=== PATIENT | female | born 1965 | race Caucasian/White ===

== ENCOUNTER 2019-10-03 00:09 | Observation (INO) ==
[2019-10-03] MEDS ORDERED: NS 1000 ML 1,000 ML ONE ×2 (00:19→01:22)
[2019-10-03] MEDS ORDERED: NS 1000 ML 1,000 ML IV ONE (00:23)
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
[2019-10-03 00:56] LABS: BASOPHILS % (AUTO) 0.8 % (0.2-1.0); EOSINOPHILS % (AUTO) 0.1 % (0.9-2.9); HEMOGLOBIN 13.8 g/dL (12.0-16.0); LYMPHOCYTES % (AUTO) 34.3 % (21.0-51.0); MEAN CORPUSCULAR HEMOGLOBIN 32.6 pg (27.0-34.0); MEAN CORPUSCULAR HGB CONC 34.5 g/dL (33.0-35.0); MEAN CORPUSCULAR VOLUME 94.4 fL (80.0-100.0); MEAN PLATELET VOLUME 7.3 fL (7.4-11.0); MONOCYTES # (AUTO) 0.3 x10^3/uL (0.3-0.8); MONOCYTES % (AUTO) 5.2 % (0.0-13.0); NEUTROPHILS # (AUTO) 3.4 x10^3/uL (2.2-4.8); NEUTROPHILS % (AUTO) 59.6 % (42.0-75.0); PLATELET COUNT 213 X10^3/uL (150.0-450.0); RED BLOOD COUNT 4.23 X10^6/uL (3.5-5.4); WHITE BLOOD COUNT 5.7 X10^3/uL (3.6-10.0)
[2019-10-03 01:00] LABS: BLOOD UREA NITROGEN 6 mg/dL (7-18); CALCIUM 8.3 mg/dL (8.5-10.1); CARBON DIOXIDE 31.6 mmol/L (21-32); CHLORIDE 102 mmol/L (98-107); CREATININE 1.09 mg/dL (0.55-1.02); SODIUM 142 mmol/L (136-145); eGFR NON BLACK RACES 56 (>60)
[2019-10-03 01:04] LABS: ALANINE AMINOTRANSFERASE 34 Units/L (12-78); ALBUMIN 3.8 g/dL (3.4-5.0); ALKALINE PHOSPHATASE 55 Units/L (46-116); ASPARTATE AMINO TRANSFERASE 34 Units/L (15-37); SERUM PREGNANCY TEST, QUAL NEGATIVE <10 mIU/mL; TOTAL PROTEIN 7.1 g/dL (6.4-8.2)
[2019-10-03] MEDS ORDERED: K-DUR TAB 20 MEQ PO STA (01:06)
[2019-10-03 01:07] LABS: SALICYLATE 18.3 mg/dL (2.8-20)
[2019-10-03] MEDS ORDERED: K-DUR TAB 20 MEQ PO ONE (01:16)
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
[2019-10-03] MEDS ORDERED: NS 1000 ML 1,000 ML IV SCH (02:00)
[2019-10-03] MEDS ORDERED: ANCEF VIAL 1 GRAM IVP ONE (03:12)
--- NOTE | 2019-10-03 03:33 | RAD ---
HISTORYPreopSTUDYCHEST, 1 VIEWCOMPARISONNoneFINDINGSFindings within the chest or accentuated by low lung volumes and body habitus. The cardiac silhouette and pulmonary vasculature are felt likely within normal limits. No focal lung consolidation is identified. There is no pleural effusion or pneumothorax.IMPRESSIONLow lung volumes without acute cardiopulmonary process identified.Electronically signed by: Pascual Correia (Oct 03, 2019 03:31:44)
[2019-10-03] MEDS ORDERED: ANCEF VIAL 1 GRAM ONE (03:34)
[2019-10-03] MEDS ORDERED: NS + KCL 20 MEQ/L 1,000 ML IV ONE (03:38)
[2019-10-03] MEDS: NS + KCL 20 MEQ/L 1,000 ML IV SCH ×4 (03:39→16:20)
[2019-10-03 03:43] LABS: BILIRUBIN,URINE NEGATIVE (NEGATIVE); BLOOD/HEMOGLOBIN,URINE NEGATIVE (NEGATIVE); GLUCOSE, URINE NEGATIVE (NEGATIVE); KETONES,URINE NEGATIVE (NEGATIVE); LEUKOCYTE ESTERASE ,URINE NEGATIVE (NEGATIVE); NITRITES,URINE NEGATIVE (NEGATIVE); PROTEIN,URINE NEGATIVE (NEGATIVE); UROBILINOGEN,URINE NORMAL (NORMAL)
[2019-10-03 03:53] LABS: APPEARANCE,URINE CLEAR (CLEAR); COLOR,URINE YELLOW (YELLOW)
[2019-10-03] MEDS ORDERED: NORCO 7.5/325 MG TAB PO PRN (04:14)
[2019-10-03] MEDS ORDERED: NORCO 7.5/325 MG TAB ONE ×2 (04:21→08:35)
[2019-10-03] MEDS ORDERED: POTASSIUM CHL 40 MEQ/NS 0.45% 500 ML IV PRN (04:35)
[2019-10-03] MEDS ORDERED: KLOR-CON PO PRN (04:35)
[2019-10-03] MEDS ORDERED: K-DUR TAB 20 MEQ PO PRN (04:35)
[2019-10-03] MEDS ORDERED: K-RIDER 10 MEQ/NS 100 ML 10 MEQ/100 ML BAG IV PRN (04:35)
[2019-10-03] MEDS ORDERED: POTASSIUM CHL 60 MEQ/NS 0.45% 500 ML IV PRN (04:35)
[2019-10-03] MEDS ORDERED: POTASSIUM CHLORIDE LIQ 20 MEQ UDC PO PRN (04:35)
[2019-10-03] MEDS ORDERED: MICRO K EXTEN CAP 10 MEQ PO PRN (04:35)
[2019-10-03] MEDS ORDERED: MAGNESIUM SULFATE 1 GRAM/100 mL PREMIX 1 G/100 ML BAG IV ONE (04:47)
[2019-10-03] MEDS: MAGNESIUM SULFATE 1 GRAM/100 mL PREMIX 1 GM/100 ML BAG IV PRN ×2 (05:40→07:43)
[2019-10-03 06:04] LABS: BASOPHILS % (AUTO) 0.1 % (0.2-1.0); EOSINOPHILS % (AUTO) 0.1 % (0.9-2.9); HEMATOCRIT 39.1 % (36.0-47.0); HEMOGLOBIN 13.6 g/dL (12.0-16.0); LYMPHOCYTES # (AUTO) 1.6 X10^3/uL (1.3-2.9); LYMPHOCYTES % (AUTO) 21.4 % (21.0-51.0); MEAN CORPUSCULAR HEMOGLOBIN 32.8 pg (27.0-34.0); MEAN CORPUSCULAR HGB CONC 34.7 g/dL (33.0-35.0); MEAN CORPUSCULAR VOLUME 94.6 fL (80.0-100.0); MEAN PLATELET VOLUME 7.4 fL (7.4-11.0); MONOCYTES # (AUTO) 0.4 x10^3/uL (0.3-0.8); MONOCYTES % (AUTO) 4.6 % (0.0-13.0); NEUTROPHILS # (AUTO) 5.7 x10^3/uL (2.2-4.8); NEUTROPHILS % (AUTO) 73.8 % (42.0-75.0); PLATELET COUNT 234 X10^3/uL (150.0-450.0); RED BLOOD COUNT 4.14 X10^6/uL (3.5-5.4); RED CELL DISTRIBUTION WIDTH 14.2 % (11.6-16.5); WHITE BLOOD COUNT 7.7 X10^3/uL (3.6-10.0)
[2019-10-03 06:15] LABS: ALANINE AMINOTRANSFERASE 35 Units/L (12-78); ALBUMIN 3.6 g/dL (3.4-5.0); ALKALINE PHOSPHATASE 53 Units/L (46-116); ASPARTATE AMINO TRANSFERASE 36 Units/L (15-37); BLOOD UREA NITROGEN 5 mg/dL (7-18); CALCIUM 8.1 mg/dL (8.5-10.1); CARBON DIOXIDE 29.8 mmol/L (21-32); CHLORIDE 106 mmol/L (98-107); CREATININE 1.04 mg/dL (0.55-1.02); SODIUM 145 mmol/L (136-145); TOTAL PROTEIN 6.8 g/dL (6.4-8.2); eGFR NON BLACK RACES 59 (>60)
[2019-10-03 06:17] VITALS: BMI 38.6
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
[2019-10-03] MEDS: NORCO 7.5/325 MG TAB PO PRN ×2 (08:38→15:50)
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
[2019-10-03] MEDS ORDERED: LR 1000 ML IV 1,000 ML IV ONE (10:29)
[2019-10-03] MEDS ORDERED: ANCEF 1 GRAM IV PREMIX* 1 G/50 ML BAG IV ONE (10:29)
[2019-10-03] MEDS ORDERED: FENTANYL INJ 100 mcg ONE (10:32)
[2019-10-03] MEDS ORDERED: XYLOCAINE 1 % (PLAIN) ONE (10:56)
[2019-10-03] MEDS ORDERED: BACITRACIN VIAL ONE (11:00)
[2019-10-03] MEDS ORDERED: BACTROBAN TOPICAL OINT ONE (11:02)
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
[2019-10-03] MEDS ORDERED: VERSED ONE (14:04)
[2019-10-03] MEDS ORDERED: DIPRIVAN VIAL ONE (14:04)
[2019-10-03] MEDS ORDERED: AFLURIA II4 or FLUARIX II4 IM ONE (14:23)
[2019-10-03] MEDS: AFLURIA II4 or FLUARIX II4 IM ONE (14:26)
[2019-10-03] MEDS ORDERED: KLONOPIN TAB 0.5 MG PO PRN (17:38)
[2019-10-03] MEDS ORDERED: XANAX PO PRN (17:38)
[2019-10-03] MEDS ORDERED: ULTRAM PO PRN (17:38)
[2019-10-03] MEDS ORDERED: ZANAFLEX PO PRN (17:38)
[2019-10-03] MEDS ORDERED: PriLOSEC PO SCH (18:00)
[2019-10-03] MEDS ORDERED: ESTRACE PO SCH (18:00)
[2019-10-03] MEDS ORDERED: SINGULAIR TAB 10 MG PO SCH (18:00)
[2019-10-03] MEDS ORDERED: MOBIC TAB 15 MG PO SCH (18:00)
[2019-10-03] MEDS ORDERED: TAPENTADOL 200 MG PO SCH (21:00)
[2019-10-03] MEDS ORDERED: PATIENT'S HOME MEDICATION (Rosuvastatin 40 MG) PO SCH (21:00)
[2019-10-03] MEDS ORDERED: ZOCOR TAB 20 MG PO SCH (21:00)
[2019-10-03] MEDS ORDERED: KEFLEX CAP 500 MG PO SCH (21:00)
[2019-10-04 01:47] VITALS: BP 117/65
[2019-10-04] MEDS ORDERED: SYNTHROID 150 mcg TAB PO SCH (06:00)
[2019-10-04] MEDS ORDERED: DETROL LA 4 MG CAP EXT REL PO SCH (09:00)
[2019-10-04] MEDS ORDERED: TENORMIN PO SCH (09:00)
== END 2019-10-04 03:00 | disposition short-term general hospital (02) ==
LOC: ER 00:10 → ICU 00:10
PROVIDERS: ADMIT Family Medicine; ATTEND Internal Medicine
CPT/HCPCS: 36415; 71010; 71045; 73552; 73564; 80053; 80307; 80320; 81003; 83735; 84132; 84703; 85025; 86850; 86900; 86901; 90674; 90686; 93005; 96365; 96367; 96374; 99285; A4222; G0378; J0690; J2250; J2704; J3010; J3475; J3490; J7030; J7120